=== PATIENT | male | born 1970 | race Caucasian/White ===

== ENCOUNTER 2018-12-26 08:32 | Observation (INO) ==
[2018-12-26 09:21] LABS: Basophils % 0.8 %; Eosinophils # 0.1 K/mcL (0.0-0.6); Eosinophils % 1.8 %; Hematocrit 43.8 % (37.5-50.1); Hemoglobin 14.4 g/dL (12.9-16.9); Immature Granulocytes % 0.2 % (0-4); Lymphocytes # 1.2 K/mcL (0.6-4.6); Lymphocytes % 24.7 %; Mean Corpuscular HGB Conc 32.9 g/dL (31.6-35.5); Mean Platelet Volume 9.7 fL (9.4-12.4); Monocytes # 0.4 K/mcL (0.0-1.3); Monocytes % 7.4 %; Neutrophils # 3.2 K/mcL (1.6-8.9); Platelet Count 249 K/mcL (140-400); Red Blood Count 5.34 M/mcL (4.19-5.50); Red Cell Distribution Width 14.1 % (11.5-14.5); Segmented Neutrophils % 65.1 %
[2018-12-26] MEDS ORDERED: Nitroglycerin 0.4 MG TAB.SUBL SL PRN (09:27)
[2018-12-26 09:28] LABS: Prothrombin Time 11.1 Seconds (9.4-12.1)
[2018-12-26 09:30] LABS: Activated Partial Thrombo Time 31.5 Seconds (26.0-36.0)
--- NOTE | 2018-12-26 09:30 | Emergency Department Note ---
Disposition Clinical Impression: Chest pain Disposition: Admitted As Inpatient Condition: Good Referrals: Sridevi Quispe CNP [Primary Care Provider] - Forms: ED Satisfaction Letter Time of Disposition: 10:20 Chest Pain HPI - General Chief Complaint: ED Chest Pain Stated Complaint: chest,neck,shoulder pain Time Seen by Provider: 12/26/18 09:18 Source: patient, family Limitations: no limitations - History of Present Illness HPI Narrative: Patient is a 48-year-old gentleman presents to the emergency department with chief complaint of chest pain. Patient reports that for several weeks is been having intermittent discomfort in his chest that radiates up the left side of his neck and into his arms. The patient states the pain is a pressure-like sensation feels like it aching and has a tightness sensation with it as well. The patient states that it feels uncomfortable and has been on improving. The patient states he seen his primary care physician who has set him up for an outpatient stress later this month but was advised to come to the emergency department if the symptoms were not improving. The patient reports that he had a stress test approximately 10 years ago that was negative. The patient reports that he is a diabetic and has recently quit smoking. Patient reports that he has family history for cardiac disease with his grandfather dying from cardiac disease in his 30s. Severity scale (1-10): 1 - Related Data Home Medications Medication Instructions Recorded Confirmed Omeprazole [PriLOSEC] 20 mg PO DAILY PRN 04/15/16 10/04/16 Celebrex 06/10/18 Trulicity 06/10/18 Previous Rx's Medication Instructions Recorded Cephalexin [Keflex] 500 mg PO BID 10 Days #20 capsule 06/10/18 Mupirocin [Bactroban Oint] 1 appl TP TID 10 Days #1 tube 06/10/18 Allergies Allergy/AdvReac Type Severity Reaction Status Date / Time No Known Allergies Allergy Verified 12/26/18 08:41 All systems ED: reviewed and negative except as stated. Chest Pain PMH - Past Medical History Medical history: Reports: diabetes, GERD Psychiatric history: Reports: no psych history - Social History Smoking Status: Former smoker Alcohol use: Reports: none Drug use: Reports: none Physical Exam General: Conversant and pleasant interactive and nontoxic. Head: Normocephalic/atraumatic Eyes:PERRLA, EOMI, no conjunctivitis Nares: Without d/c. Ears: No erythema or d/c noted. Oralpharnyx: P&MMM noted, Neck: Supple, no JVD or SALES CLERK noted. Cardovascular: regular rate and rhythm without murmur, brisk capillary refill, no peripheral edema. Lungs: Clear to ascultation bilaterally, non-labored Abd: Soft nontender, Non Distended, no guarding, no rebound. : Defered Extremities: moves all extremities equally Neuro: AOx3, no obvious gross neuro deficit Psych: Normal Affect Derm: No rash noted - General Limitations: no limitations General appearance: alert, in no apparent distress Course Vital Signs Temperature 98.4 F 12/26/18 08:41 Pulse Rate 88 12/26/18 08:41 Respiratory Rate 16 12/26/18 08:41 Blood Pressure 145/83 12/26/18 08:41 O2 Sat by Pulse Oximetry 96 12/26/18 08:41 Temperature 98.4 F 12/26/18 08:41 Pulse Rate 88 12/26/18 08:41 Respiratory Rate 16 12/26/18 08:41 Blood Pressure 145/83 12/26/18 08:41 O2 Sat by Pulse Oximetry 96 12/26/18 08:41 Oxygen Delivery Oxygen Delivery Room Air Chest Pain - Lab Data Result diagrams: 12/26/18 08:54 12/26/18 08:54 Lab Results 12/26/18 12/26/18 12/26/18 Range/Units 08:54 08:54 08:54 WBC 5.0 (4.3-11.1) K/mcL RBC 5.34 (4.19-5.50) M/mcL Hgb 14.4 (12.9-16.9) g/dL Hct 43.8 (37.5-50.1) % MCV 82.0 L (83.0-100.0) fL MCH 27.0 L (28.0-33.3) pg MCHC 32.9 (31.6-35.5) g/dL RDW 14.1 (11.5-14.5) % Plt Count 249 (140-400) K/mcL MPV 9.7 (9.4-12.4) fL Immature Gran % 0.2 (0-4) % Seg Neutrophils % 65.1 % Lymphocytes % 24.7 % Monocytes % 7.4 % Eosinophils % 1.8 % Basophils % 0.8 % Neutrophils # 3.2 (1.6-8.9) K/mcL Lymphocytes # 1.2 (0.6-4.6) K/mcL Monocytes # 0.4 (0.0-1.3) K/mcL Eosinophils # 0.1 (0.0-0.6) K/mcL Basophils # 0.0 (0.0-0.2) K/mcL PT 11.1 (9.4-12.1) Seconds INR 1.0 APTT 31.5 (26.0-36.0) Seconds Sodium 137 (136-145) mEq/L Potassium 4.4 (3.5-5.1) mEq/L Chloride 100 (98-107) mEq/L Carbon Dioxide 29 (23-29) mEq/L BUN 13 (6-20) mg/dL Creatinine 0.52 L (0.70-1.30) mg/dL Est GFR ( Amer) > 60 (> 60) Est GFR (Non-Af Amer) > 60 (> 60) BUN/Creatinine Ratio 25 (6-26) Glucose 263 H (70-105) mg/dL Calculated Osmolality 293 (280-300) Calcium 9.0 (8.6-10.3) mg/dL Troponin I < 0.03 (< 0.04) ng/mL Heart Score - Score History: Moderately Suspicious EKG: Normal Age: 45-65 Risk Factors: Equal/Greater than 3 risk factor or history of atherosclerotic disease
[2018-12-26] MEDS ORDERED: Nitroglycerin 0.4 MG TAB.SUBL SL ONE (09:38)
[2018-12-26] MEDS ORDERED: Aspirin 81 MG TAB.CHEW ONE (09:38)
[2018-12-26 09:40] LABS: BUN/Creatinine Ratio 25 (6-26); Blood Urea Nitrogen 13 mg/dL (6-20); Carbon Dioxide 29 mEq/L (23-29); Chloride 100 mEq/L (98-107); Glucose 263 mg/dL (70-105); Osmolality,Calculated 293 (280-300); Potassium 4.4 mEq/L (3.5-5.1); Sodium 137 mEq/L (136-145); Troponin I < 0.03 ng/mL (< 0.04); eGFR For Non-African Americans > 60 (> 60)
[2018-12-26] MEDS ORDERED: Aspirin 81 MG TAB.CHEW PO ONE (09:48)
[2018-12-26] MEDS ORDERED: Naloxone 0.4 MG/ML INJ IVP PRN (11:07)
[2018-12-26] MEDS ORDERED: *HR* Dextrose 50 % in Water (Syg) 50 ML SYRINGE IVP PRN (11:10)
[2018-12-26] MEDS ORDERED: D5% in Water 1,000 ML IVC PRN (11:10)
[2018-12-26] MEDS ORDERED: Dextrose Gel 15 GM/37.5 ML TUBE PO PRN ×2 (11:10)
--- NOTE | 2018-12-26 11:20 | Internal Med History&Physical ---
Date of Encounter: 12/26/18 Time of Encounter: 11:11 Internal Medicine - H&P: HPI Chief complaint: chest pain Admitted From: Home Plans for Post Hospital Care: Home History of present illness: Mr. Green is a 48 year old male with history of diabetes and GERD presented to the emergency department with complaint of chest pain. As per patient he has had constant chest pain for the past month that is progressively worsening. He describes his chest pain as achy pain located in the anterior upper left chest and left neck radiating to the left arm that occurs both at rest and on exertion. The pain also has intermittent episodes of sharp quality. He describes the pain as a 4 out of 10. He cannot recall alleviating or aggravating factors. he does 2 weeks ago he saw his family physician and an electrocardiogram was performed and it was decided that he would need to undergo stress test which is scheduled for the of this month. Since his chest pain has not improved he decided to come to the emergency department for further evaluation. He denies PND, orthopnea, nausea, diaphoresis, fever, chills, re cent chest trauma, heavy lifting, leg swelling, calf tenderness, prolonged immobilization. Chest pain is not reproducible on palpation, deep breathing does not exacerbate the chest pain. While the emergency department EKG did not show any acute ST-T changes, troponin was negative and he was endorsed for admission and further evaluation of his chest pain. Past Med Surg Social Fam HX - Past Medical History Medical history: diabetes, GERD Psychiatric history: no psych history - Past Surgical History Surgical History: no surgical history - Social History Smoking Status: Former smoker Smokeless Tobacco Status: No Alcohol use: none Drug use: none Internal Medicine - H&P: Meds BuPROPion XL (24 HR) [Wellbutrin XL] 150 mg PO DAILY 12/26/18 [History] GlipiZIDE [Glipizide Xl] 5 mg PO DAILY 12/26/18 [History] Omeprazole [PriLOSEC] 20 mg PO DAILY 12/26/18 [History] Allergy/AdvReac Type Severity Reaction Status Date / Time No Known Allergies Allergy Verified 12/26/18 08:41 All Systems PM: A 10-system review of systems was performed and is negative for pertinent findings except as documented above in the HPI. - Constitutional Vitals: Temp Pulse Resp BP Pulse Ox 98.4 F 79 14 139/72 94 12/26/18 08:41 12/26/18 10:35 12/26/18 10:35 12/26/18 10:35 12/26/18 10:35 Exam: General: Patient is alert, oriented, no acute distress, obese Head: atraumatic, normocephalic, Eye: Left eye with dark. discoloration around the cornea since childhood PERRL, no scleral icterus, no conjunctival injection ENT: mucous membranes moist, normal external ear exam Neck: normal inspection, trachea midline, full ROM, no carotid bruits Chest: normal inspection, symmetric chest rise Respiratory: Good respiratory effort. Bilateral breath sounds are clear without wheezing, crackles, or rhonchi. Cardiovascular: Regular rate and rhythm. s1 and s2 No clicks, rubs, gallops, or murmors. Abdomen: Bowel sounds present normoactive x-4 quadrants. Abdomen is soft, nondistended. no Epigastric tenderness. No guarding or rebound. No organomegaly noted, obese musculoskeletal: Spontaneously moving all extremities. no edema, no calf tenderness Skin: warm, dry, intact. Neuro: Alert and oriented x3 no focal deficit Psych: Patient's affect is normal Internal Med - H&P Results - Labs CBC & Chem 7: 12/26/18 08:54 12/26/18 08:54 Labs: Short CBC 12/26/18 Range/Units 08:54 WBC 5.0 (4.3-11.1) K/mcL Hgb 14.4 (12.9-16.9) g/dL Hct 43.8 (37.5-50.1) % Plt Count 249 (140-400) K/mcL Neutrophils # 3.2 (1.6-8.9) K/mcL BMP 12/26/18 08:54 Sodium 137 Potassium 4.4 Chloride 100 Carbon Dioxide 29 BUN 13 Creatinine 0.52 L Glucose 263 H Calcium 9.0 Cardiac Enzymes 12/26/18 Range/Units 08:54 Troponin I < 0.03 (< 0.04) ng/mL - EKG Data -: EKG Interpreted by Myself EKG shows normal: sinus rhythm - EKG Data Prior EKG available for review: no - Impressions ITS Impressions Chest X-Ray 12/26/18 08:45 IMPRESSION: No evidence of acute cardiopulmonary disease. D/ / Jordan Gonzales MD / Jordan Gonzales MD Interpreting Provider: Jordan Gonzales MD - Assessment and Plan (1) Chest pain Current Visit: Yes Status: Acute Assessment and plan: Chest pain rule out ACS was scheduled for stress test as outpatient on the First troponin is negative will continue to follow every 6 hours Has been nothing by mouth so will obtain a stress test Echocardiogram Continue to follow troponins every 6 hours along with EKG Was loaded with aspirin 325 in the ED will continue with 81 mg Telemetry monitoring Consider cardiology consult pending above Lipid panel, TSH and A1c in the morning Qualifiers: Chest pain type: precordial pain Qualified Code(s): R07.2 - Precordial pain (2) Neck pain Current Visit: Yes Status: Acute Assessment and plan: Neck pain that radiates to shoulders and associated with bilateral hand numbness and tingling off-and-on Denies loss of function of the extremities, has had no incontinence, denies leg weakness Will obtain MRI of the neck (3) DM2 (diabetes mellitus, type 2) Current Visit: Yes Status: Acute Assessment and plan: Hold oral hypoglycemic agents Continue with sliding scale insulin adjust as per fingersticks A1c in a.m. Qualifiers: Diabetes mellitus funnel coater insulin use: without funnel coater use Diabetes mellitus complication status: without complication Qualified Code(s): E11.9 - Type 2 diabetes mellitus without complications (4) Obesity (BMI 30.0-34.9) Current Visit: Yes Status: Acute Assessment and plan: Was counseled on nutrition (5) Former smoker Current Visit: Yes Status: Acute Assessment and plan: Former smoker Quit 2 weeks ago Was counseled (6) DVT prophylaxis Current Visit: Yes Status: Acute Assessment and plan: Heparin subcutaneous - Time Spent With Patient Total time spent is greater than 50% in coordination of care (as documented) at patient's floor/unit and/or counseling patient:
[2018-12-26] MEDS ORDERED: 0.9 % Sodium Chloride 1,000 ML IVC SCH (11:30)
[2018-12-26] MEDS: Insulin LISPRO 300 UNITS/3 ML VIAL SQ SCH ×2 (14:21→15:52)
[2018-12-26] MEDS: *HR* Heparin 5,000 UNIT/ML VIAL SQ SCH ×2 (14:28→20:31)
[2018-12-26] MEDS ORDERED: Insulin LISPRO 300 UNITS/3 ML VIAL SQ SCH (21:00)
[2018-12-27 05:13] LABS: Basophils # 0.1 K/mcL (0.0-0.2); Basophils % 0.9 %; Eosinophils # 0.1 K/mcL (0.0-0.6); Eosinophils % 1.6 %; Hematocrit 43.9 % (37.5-50.1); Hemoglobin 14.4 g/dL (12.9-16.9); Immature Granulocytes % 0.2 % (0-4); Lymphocytes % 34.8 %; Mean Corpuscular HGB Conc 32.8 g/dL (31.6-35.5); Mean Corpuscular Volume 82.2 fL (83.0-100.0); Mean Platelet Volume 9.7 fL (9.4-12.4); Monocytes # 0.3 K/mcL (0.0-1.3); Monocytes % 6.1 %; Neutrophils # 3.2 K/mcL (1.6-8.9); Platelet Count 251 K/mcL (140-400); Red Blood Count 5.34 M/mcL (4.19-5.50); Red Cell Distribution Width 14.2 % (11.5-14.5); Segmented Neutrophils % 56.4 %
[2018-12-27 05:24] LABS: Estimated Average Glucose 212 mg/dl
[2018-12-27 05:40] LABS: BUN/Creatinine Ratio 16 (6-26); Blood Urea Nitrogen 9 mg/dL (6-20); Calcium 8.8 mg/dL (8.6-10.3); Carbon Dioxide 28 mEq/L (23-29); Chloride 102 mEq/L (98-107); Chol/HDL Ratio 3.6 (0-4.9); Cholesterol 163 mg/dL (< 200); Glucose 178 mg/dL (70-105); HDL Cholesterol 45 mg/dL (40-59); LDL Cholesterol,Calculated 93 mg/dL (0-99); Osmolality,Calculated 287 (280-300); Phosphorous 3.1 mg/dL (2.7-4.5); Potassium 4.1 mEq/L (3.5-5.1); Sodium 137 mEq/L (136-145); Triglycerides 124 mg/dL (< 150); eGFR For Non-African Americans > 60 (> 60)
[2018-12-27 05:46] LABS: Thyroid Stimulating Hormone 1.881 mcIU/mL (0.340-5.600)
[2018-12-27] MEDS ORDERED: Regadenoson 0.4 MG/5 ML SYRINGE IVP ONE (06:13)
[2018-12-27] MEDS: *HR* Heparin 5,000 UNIT/ML VIAL SQ SCH (06:21)
[2018-12-27] MEDS ORDERED: Aspirin 81 MG TAB.CHEW PO SCH (09:00)
[2018-12-27] MEDS ORDERED: BuPROPion XL (24 HR) 150 MG TABLET PO SCH (09:00)
[2018-12-27] MEDS ORDERED: Aspirin 81 MG TAB.CHEW PO ONE (09:27)
[2018-12-27] MEDS: Insulin LISPRO 300 UNITS/3 ML VIAL SQ SCH (10:33)
[2018-12-27 11:27] VITALS: BP 145/85
--- NOTE | 2018-12-27 11:29 | Discharge Summary ---
- NOTES TO OUTPATIENT PROVIDER Notes to Outpatient Provider: f/u with PCP within 2 weeks. Orthopedics within a month. Orders not resulted at time of discharge: Pending orders 12/26/18 08:45 ECG 12 lead ECG [ECG] Stat 12/27/18 08:00 NM leanne perf SPECT multi [NM] Routine Date of Encounter: 12/27/18 Time of Encounter: 11:27 - Discharge Diagnosis (1) Chest pain Priority: Primary Status: Acute Qualifiers: Chest pain type: precordial pain Qualified Code(s): R07.2 - Precordial pain (2) Obesity (BMI 30.0-34.9) Priority: Secondary Status: Chronic (3) DM2 (diabetes mellitus, type 2) Priority: Secondary Status: Chronic Qualifiers: Diabetes mellitus meterman insulin use: without fci use Diabetes mellitus complication status: without complication Qualified Code(s): E11.9 - Type 2 diabetes mellitus without complications (4) DVT prophylaxis Priority: Primary Status: Acute (5) Former smoker Priority: Secondary Status: Chronic (6) Neck pain Priority: Primary Status: Acute Hospital course: Mr. Green is a 48 year old male with history of diabetes and GERD presented to the emergency department with complaint of chest pain. As per patient he has had constant chest pain for the past month that is progressively worsening. He describes his chest pain as achy pain located in the anterior upper left chest and left neck radiating to the left arm that occurs both at rest and on exertion. The pain also has intermittent episodes of sharp quality. He describes the pain as a 4 out of 10. He cannot recall alleviating or aggravating factors. he does 2 weeks ago he saw his family physician and an electrocardiogram was performed and it was decided that he would need to undergo stress test which is scheduled for the of this month. Since his chest pain has not improved he decided to come to the emergency department for further evaluation. He denies PND, orthopnea, nausea, diaphoresis, fever, chills, recent chest trauma, heavy lifting, leg swelling, calf tenderness, prolonged immobilization. Chest pain is not reproducible on palpation, deep breathing does not exacerbate the chest pain. While the emergency department EKG did not show any acute ST-T changes, troponin was negative and he was endorsed for admission and further evaluation of his chest pain. Serial troponin was negative, EKG has no acute ST-T change. An echocardiogram showed a preserved ejection fraction with moderate LV DD and mild valvular disorders. A stress nuclear test was negative for ischemia or infarct. CT of cervical spine showed mild spondylosis and radiculopathy, orthopedics was called and recommended outpatient follow-up. Patient is discharged home today, he will follow-up with PCP and orthopedics as scheduled. Discharge discussed with: patient Time spent discussing smoking cessation with patient: more than 10 minutes - Time Spent with Patient Total time spent providing and/or coordinating discharge services: Time spent: Greater than 30 minutes - Discharge Medications Prescriptions: Continued Omeprazole [PriLOSEC] 20 mg PO DAILY BuPROPion XL (24 HR) [Wellbutrin Xl] 150 mg PO QAM GlipiZIDE [Glipizide Xl] 5 mg PO DAILY Aspirin [Lo-Dose Aspirin EC] 81 mg PO DAILY Home Medications: Aspirin [Lo-Dose Aspirin EC] 81 mg PO DAILY 12/26/18 [History] BuPROPion XL (24 HR) [Wellbutrin Xl] 150 mg PO QAM 12/26/18 [History] GlipiZIDE [Glipizide Xl] 5 mg PO DAILY 12/26/18 [History] Omeprazole [PriLOSEC] 20 mg PO DAILY 12/26/18 [History] Allergies/Adverse Reactions: Allergy/AdvReac Type Severity Reaction Status Date / Time No Known Allergies Allergy Verified 12/26/18 18:29 Date of admission: 12/26/18 10:35 Primary care physician: Sridevi Quispe CNP Anticipated date of discharge: 12/27/18 - Constitutional Vitals: Temp Pulse Resp BP Pulse Ox 98.6 F 86 14 145/85 97 12/27/18 11:18 12/27/18 11:18 12/27/18 11:18 12/27/18 11:18 12/27/18 11:18 General appearance: Present: A&O X 3 Exam: General: Patient is alert, oriented, no acute distress, obese Head: atraumatic, normocephalic, Eye: Left eye with dark. discoloration around the cornea since childhood PERRL, no scleral icterus, no conjunctival injection ENT: mucous membranes moist, normal external ear exam Neck: normal inspection, trachea midline, full ROM, no carotid bruits Chest: normal inspection, symmetric chest rise Respiratory: Good respiratory effort. Bilateral breath sounds are clear without wheezing, crackles, or rhonchi. Cardiovascular: Regular rate and rhythm. s1 and s2 No clicks, rubs, gallops, or murmors. Abdomen: Bowel sounds present normoactive x-4 quadrants. Abdomen is soft, nondistended. no Epigastric tenderness. No guarding or rebound. No organomegaly noted, obese musculoskeletal: Spontaneously moving all extremities. no edema, no calf tenderness Skin: warm, dry, intact. Neuro: Alert and oriented x3 no focal deficit Psych: Patient's affect is normal - Patient Status Disposition: Home, Self-Care Condition: Good Functional capacity at discharge: independent ambulation Overall status at discharge: patient is progressing back to baseline - Discharge Instructions Follow Up With: Sridevi Quispe CNP [Primary Care Provider] - (Follow up appointment has been requested. Office will call with date and time of appointment. ) - Diet and Activity Activity: increase activity as tolerated Diet: diabetic diet, low fat, low cholesterol, low salt diet
--- NOTE | 2018-12-29 17:16 | Electrocardiograph Report ---
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
== END 2018-12-27 12:15 | disposition home or self-care (01) ==
LOC: 3BNU 08:32 → EMEROOARM 08:32 → 3BNU 11:10
PROVIDERS: ADMIT Internal Medicine; ATTEND Internal Medicine